=== PATIENT | female | born 1970 | race Caucasian/White ===

== ENCOUNTER 2021-07-31 07:57 | Outpatient (REF) | payer OTHER, SELFPAY ==
[2021-07-31 12:24] LABS: Alanine Aminotransferase 22 U/L (0-31); Aspartate Amino Transferase 24 U/L (5-31); Gamma Glutamyl Transpeptidase 56 U/L (7-33)
== END 2021-07-31 07:58 | disposition home or self-care (01) ==
LOC: HO.HMGCLDS 07:57
PROVIDERS: Visit Provider Registered Nurse
DX: F11.20 Opioid dependence, uncomplicated (principal)
CPT/HCPCS: 36415; 82977; 84450; 84460

== ENCOUNTER 2022-05-10 10:35 | Outpatient (REF) | payer OTHER, SELFPAY ==
[2022-05-10 14:03] LABS: Alanine Aminotransferase 20 U/L (0-31); Aspartate Amino Transferase 17 U/L (5-31); Gamma Glutamyl Transpeptidase 114 U/L (7-33)
== END 2022-05-10 10:36 | disposition home or self-care (01) ==
LOC: HO.HMGCLDS 10:35
PROVIDERS: Visit Provider Registered Nurse
DX: F11.20 Opioid dependence, uncomplicated (principal)
CPT/HCPCS: 36415; 82977; 84450; 84460

== ENCOUNTER 2022-12-16 11:32 | Outpatient (REF) | payer OTHER, SELFPAY ==
[2022-12-16 14:07] LABS: MANUAL DIFF FLAG NO
[2022-12-16 14:20] LABS: Basophils Percent Auto 0.6 % (0-2); Eosinophils Absolute Auto 0.1 X10*3/uL (0.0-0.4); Eosinophils Percent Auto 1.9 % (0-4); Hematocrit 38.3 % (37.0-47.0); Hemoglobin 12.3 g/dl (12.0-16.0); Imm Gran Abs Auto 0.02 X10*3/uL (0.00-0.03); Imm Gran Pct Auto 0.3 % (0.0-0.4); Lymphocytes Absolute Auto 2.2 X10*3/uL (1.2-4.9); Lymphocytes Percent Auto 29.8 % (20-40); Mean Corpuscular HGB Conc 32.1 g/dl (31.0-35.0); Mean Corpuscular Hemoglobin 29.1 pg (27.0-33.0); Mean Corpuscular Volume 90.8 fL (80.0-98.0); Mean Platelet Volume 9.9 fL (9.4-12.3); Monocytes Absolute Auto 0.4 X10*3/uL (0.1-1.2); Monocytes Percent Auto 5.9 % (2-11); Neutrophils Absolute Auto 4.5 x10*3/uL (2.0-8.3); Neutrophils Percent Auto 61.5 % (45-73); Platelet Count 358 X10*3/uL (160-400); Red Blood Count 4.22 X10*6/uL (4.20-5.50); Red Cell Distribution Width 12.8 % (11.0-16.0); White Blood Count 7.2 X10*3/uL (4.8-10.8)
[2022-12-16 14:32] LABS: Alanine Aminotransferase 16 U/L (0-31); Albumin Level 3.9 g/dL (3.5-5.0); Alkaline Phosphatase 71 U/L (39-117); Anion Gap 12 (12-20); Aspartate Amino Transferase 17 U/L (5-31); Bilirubin Total 0.5 mg/dL (0.0-1.0); Blood Urea Nitrogen 16 mg/dL (9-16); Calcium 9.6 mg/dL (8.4-10.2); Carbon Dioxide 27 mmol/L (22-29); Chloride 106 mmol/L (96-108); Estimated Glomerular Filt Rate > 60; Gamma Glutamyl Transpeptidase 35 U/L (7-33); Glucose Random 100 mg/dL (60-115); Potassium 4.7 mmol/L (3.3-5.1); Sodium 140 mmol/L (135-145); Total Protein 6.6 g/dL (6.5-8.0)
[2022-12-17 19:23] LABS: HCV RNA PCR Qn <1.18 NOT DETECTED Log IU/mL (NOT DETECTED); HCV RNA PCR Qn <15 NOT DETECTED IU/mL (NOT DETECTED)
[2022-12-18 07:41] LABS: Hepatitis A Antibody IgG Nonreactive (Nonreactive); ~Hepatitis A Antibody IgG 0.83 S/CO (0.00-0.99)
[2022-12-18 07:53] LABS: HBc Num1 0.13 S/CO (0.00-0.79); HBsAGNum1 0.29 S/CO (0.00-0.99); HIV AB/AG Nonreactive (Nonreactive); Hepatitis B Core Antibody Nonreactive (Nonreactive); Hepatitis B Surface Antigen Negative (Negative); ~HepC Num1 0.12 S/CO (0.00-0.79); ~Hepatitis C Antibody Nonreactive (Nonreactive)
== END 2022-12-16 11:33 | disposition home or self-care (01) ==
LOC: HO.HMGCLDS 11:32
PROVIDERS: Visit Provider Registered Nurse
DX: F11.20 Opioid dependence, uncomplicated (principal)
CPT/HCPCS: 36415; 80053; 82977; 85025; 86704; 86708; 86803; 87340; 87389; 87902

== ENCOUNTER 2023-04-02 08:36 | Emergency (ER) | payer OTHER, SELFPAY ==
--- NOTE | ~2023-04-02 | XR_ITS ---
EXAMINATION: XR ABDOMEN KUB CLINICAL INDICATION: Abdominal pain and constipation COMPARISON: None available. TECHNIQUE: AP view of the abdomen. FINDINGS: The bowel gas pattern is normal with no evidence of ileus or obstruction. Minimal stool is present: No unusual soft tissue calcifications are noted. Surgical clips are seen in the gallbladder fossa The bones are unremarkable. XR/XR KUB IMPRESSION: Unremarkable examination.
[2023-04-02 08:52] VITALS: BP 121/62; BP 150/98; PULSE 53; PULSE 58; RESP 20; TEMP 36.6; O2SAT 100; O2SAT 99; BMI 33.1
--- NOTE | 2023-04-02 08:58 | ED_ITS ---
HPI - Abdominal Pain General Chief Complaint: Abdominal Pain Stated Complaint: abd pain with constipation per ems Time Seen by Provider: 04/02/23 08:51 Source: patient and EMS Mode of arrival: EMS Limitations: no limitations History of Present Illness HPI narrative: 52 yo female with history of chronic constipation who presents to the ER for evaluation of acute on chronic constipation associated with intermittent abdominal pains that are now resolved. States prior to today her last bowel movement was 1 week ago. She states she took 10 tablets of an [id number]-[id number] [employer] laxative within the last 24 hours. She this morning she developed acute onset of intense abdominal cramping along with sweating and 1 episode of vomiting. She states she panicked and called 911. She states she has had 3 episodes of loose bowel movements since then. Her pain is now resolved. MD elicited complaint: abdominal pain Pertinent past history: constipation Onset (ago): week(s) (1) Pain Consistency: now resolved Location: diffuse Severity: severe Quality: cramping Radiation: none Migration to: no migration Exacerbating factors: medication Relieving factors: bowel movement Context: history of similar episodes Associated symptoms: nausea, vomiting, diarrhea and constipation Treatments prior to arrival: other (laxatives) Related Data Allergies Allergy/AdvReac Type Severity Reaction Status Date / Time No Known Allergies Allergy Unverified 07/27/20 15:24 Review of Systems Review of Systems Yes all other systems are reviewed and are negative [facility] Social History Social History Smoked in Last 30 Days: No Use of substances other than those prescribed or required for medical reasons: No Advance Directives: No Patient : No Physical Exam ED Vital Signs: Vital Signs - 24 hr 04/02/23 08:52 Temperature 97.8 F Pulse Rate 53 Respiratory Rate 20 Blood Pressure 121/62 Pulse Oximetry 99 Oxygen Delivery Method Room Air BMI result Body Mass Index 33.1 Appearance: Alert. Oriented X3. No acute distress. Head: normocephalic, atraumatic. Eyes: Pupils equal, round and reactive to light. ENT: Pharynx normal. No tonsillar swelling or exudate. Neck: Normal inspection. Neck supple. CVS: Normal heart rate and rhythm. Pulses normal. Respiratory: No respiratory distress. Breath sounds normal. Abdomen: Soft and nontender. +BS x4 Skin: Skin warm and dry. Normal skin color. Normal skin turgor. No rashes. Extremities: No lower extremity edema. No joint swelling. Neuro/psych: Oriented X 3. No motor deficit. No sensory deficit. CN II-XII in tact. Normal speech and cognition. Medical Decision Making Medical Decision Making [facility] Narrative: 52 yo female with history of chronic constipation presents to the ER for evaluation of severe, transient abdominal cramping her cirrhosis with oral laxative yesterday. She states she had severe cramping pain, nausea, vomiting and then 3 episodes of loose stools earlier today. The pain is now resolved. She is no longer nauseous. On arrival to the ER her abdomen is soft, nontender, nondistended with normoactive bowel sounds. Her KUB is normal. Her labs look normal. At this time patient is stable for discharge home with modification of oral laxative regimen, increase in dietary fiber and follow-up with GI. She has never seen GI, never had a colonoscopy. Patient also follow-up with her primary care doctor. Return precautions were discussed. Stable for DC Differential Diagnosis Differential Diagnoses: The differential diagnosis associated with the presentation includes constipation, bowel obstruction, colitis, diverticulitis Lab Data [facility] Lab Attestation statement: I reviewed the patient's lab results. 04/02/23 09:46 04/02/23 09:46 Labs: Lab Results 04/02/23 04/02/23 Range/Units 09:46 09:46 WBC 10.2 (4.8-10.8) X10*3/uL RBC 4.63 (4.20-5.50) X10*6/uL Hgb 13.3 (12.0-16.0) g/dl Hct 40.4 (37.0-47.0) % MCV 87.3 (80.0-98.0) fL MCH 28.7 (27.0-33.0) pg MCHC 32.9 (31.0-35.0) g/dl RDW 13.2 (11.0-16.0) % Plt Count 306 (160-400) X10*3/uL MPV 8.9 L (9.4-12.3) fL Immature Gran % (Auto) 0.9 H (0.0-0.4) % Neut % (Auto) 70.9 (45-73) % Lymph % (Auto) 19.7 L (20-40) % [place] % (Auto) 6.3 (2-11) % Eos % (Auto) 1.8 (0-4) % Baso % (Auto) 0.4 (0-2) % Lymph # (Auto) 2.0 (1.2-4.9) X10*3/uL [place] # (Auto) 0.6 (0.1-1.2) X10*3/uL Eos # (Auto) 0.2 (0.0-0.4) X10*3/uL Baso # (Auto) 0.0 (0.0-0.2) X10*3/uL Abs Immat Gran (auto) 0.09 H (0.00-0.03) X10*3/uL Absolute Neuts (auto) 7.3 (2.0-8.3) x10*3/uL Absolute Nucleated RBC 0.000 (0.0-0.012) X10*3/uL Nucleated RBC % (auto) 0.0 (0.0-0.2) /100WBC Sodium 141 (135-145) mmol/L Potassium 3.9 (3.3-5.1) mmol/L Chloride 105 (96-108) mmol/L Carbon Dioxide 29 (22-29) mmol/L Anion Gap 11 L (12-20) BUN 11 (9-16) mg/dL Creatinine 0.72 (0.5-1.4) mg/dL Estim Creat Clear Calc 89.7 Estimated GFR > 60 Random Glucose 114 (60-115) mg/dL Calcium 9.3 (8.4-10.2) mg/dL Magnesium 1.8 (1.6-2.6) mg/dL Total Bilirubin 0.6 (0.0-1.0) mg/dL Direct Bilirubin 0.2 (0.0-0.5) mg/dL AST 19 (5-31) U/L ALT 21 (0-31) U/L Alkaline Phosphatase 80 (39-117) U/L Total Protein 6.9 (6.5-8.0) g/dL Albumin 4.0 (3.5-5.0) g/dL Independent Interpretation I performed an independent interpretation of an: Plain X-Ray Interpretation: nonobstructive bowel pattern, agree with radiology read Radiology Impression Discussion of test interpretation with radiology: I have reviewed the radiologist's reading. Radiologist Impression: EXAMINATION: XR ABDOMEN KUB CLINICAL INDICATION: Abdominal pain and constipation? COMPARISON: None available.? TECHNIQUE: AP view of the abdomen. FINDINGS: The bowel gas pattern is normal with no evidence of ileus or obstruction. Minimal stool is present: No unusual soft tissue calcifications are noted. Surgical clips are seen in the gallbladder fossa The bones are unremarkable. XR/XR KUB IMPRESSION: Unremarkable examination. Independent Historian Clinical information obtained from an independent historian. History obtained from or confirmed by: EMS External Record Review External record reviewed: Prior outpatient labs Prescription Management I considered prescription management with: Other (laxatives) Chronic Conditions Patient?s care impacted by: Other (constipation) Critical Care Time Critical Care Time Critical Care Time: No Discharge Plan Discharge Clinical Impression: Constipation Patient Disposition: Home, Self-Care Instructions: Constipation (DC), High Fiber Diet (ED) Additional Instructions: Your abdominal x-ray was normal. Your lab workup was unremarkable. Recommend MiraLax 17 g daily. This is a powder that can be added to any drink, it is tasteless and will gently soften her stool and have a laxative affect. You can use it daily. Also recommend colace 100 mg two times per day. Recommend following up with your primary care doctor Also recommend you follow up with GI, you are due for a colonoscopy If you develop new or worsening symptoms call 911 or come back to the ER for further evaluation. Referrals: [facility] [Provider Group] (constipation)
[2023-04-02 09:50] LABS: MANUAL DIFF FLAG NO
[2023-04-02 09:54] LABS: Basophils Percent Auto 0.4 % (0-2); Eosinophils Absolute Auto 0.2 X10*3/uL (0.0-0.4); Eosinophils Percent Auto 1.8 % (0-4); Hematocrit 40.4 % (37.0-47.0); Hemoglobin 13.3 g/dl (12.0-16.0); Imm Gran Abs Auto 0.09 X10*3/uL (0.00-0.03); Imm Gran Pct Auto 0.9 % (0.0-0.4); Lymphocytes Percent Auto 19.7 % (20-40); Mean Corpuscular HGB Conc 32.9 g/dl (31.0-35.0); Mean Corpuscular Hemoglobin 28.7 pg (27.0-33.0); Mean Corpuscular Volume 87.3 fL (80.0-98.0); Mean Platelet Volume 8.9 fL (9.4-12.3); Monocytes Absolute Auto 0.6 X10*3/uL (0.1-1.2); Monocytes Percent Auto 6.3 % (2-11); Neutrophils Absolute Auto 7.3 x10*3/uL (2.0-8.3); Neutrophils Percent Auto 70.9 % (45-73); Platelet Count 306 X10*3/uL (160-400); Red Blood Count 4.63 X10*6/uL (4.20-5.50); Red Cell Distribution Width 13.2 % (11.0-16.0); White Blood Count 10.2 X10*3/uL (4.8-10.8)
[2023-04-02 10:09] LABS: Alanine Aminotransferase 21 U/L (0-31); Alkaline Phosphatase 80 U/L (39-117); Anion Gap 11 (12-20); Aspartate Amino Transferase 19 U/L (5-31); Bilirubin Direct 0.2 mg/dL (0.0-0.5); Bilirubin Total 0.6 mg/dL (0.0-1.0); Blood Urea Nitrogen 11 mg/dL (9-16); Calcium 9.3 mg/dL (8.4-10.2); Carbon Dioxide 29 mmol/L (22-29); Chloride 105 mmol/L (96-108); Creatinine Clr Calc Pharmacy 89.7; Estimated Glomerular Filt Rate > 60; Glucose Random 114 mg/dL (60-115); Magnesium 1.8 mg/dL (1.6-2.6); Potassium 3.9 mmol/L (3.3-5.1); Sodium 141 mmol/L (135-145); Total Protein 6.9 g/dL (6.5-8.0)
[2023-04-02 10:19] VITALS: BP 122/69; PULSE 59; RESP 18; TEMP 36.6; O2SAT 99
== END 2023-04-02 10:29 | disposition home or self-care (01) ==
PROVIDERS: Physician Assistant; Emergency Provider Emergency Medicine Emergency Medical Services
DX: K59.00 Constipation, unspecified (principal); R10.9 Unspecified abdominal pain
CPT/HCPCS: 36415; 74018; 80048; 80076; 83735; 85025; 99283; 99284

== ENCOUNTER 2025-06-08 08:55 | Outpatient (AMB) | payer OTHER, SELFPAY ==
--- OUTSIDE RECORDS SUMMARY | 2025-06-08 09:20 | XMS_ITS ---
Author Name [facility] Organization Unknown Care Team Organization Name Specialty Phone Email Start Date End Da te [facility] Valery Castro Primary Care 01/15/2023 06/28/2024 [facility] Ariana Curry Primary Care 09/17/20222023
--- OUTSIDE RECORDS SUMMARY | 2025-06-08 09:20 | XMS_ITS | Clinical Summary ---
Author Organization [facility] [address] [place] [address] Address [address], [place] Phone Care Team Providers Care Chemical Compounder Helper Name Role Phone Valery Tejeda MD Primary Care Prov ider Allergies No known active allergies Medications ALPRAZolam (XANAX) 1 mg tablet Take 1 mg by mouth 2 times daily as needed. Active cloNIDine (CATAPRES) 0.1 mg tablet Take 0.1 mg by mouth 2 times daily. Active blood sugar diagnostic (FreeStyle Lite Strips) test strip E11.49USE ONCE DAILY 4 Active freestyle 28 gauge lancets 1 Units by Does not apply route daily. 4 Active blood-glucose meter kit Use to check blood sugars 1 each 5 Active empagliflozin (Jardiance) 25 mg tablet Take 25 mg by mouth daily. 90 tablet 2 5 Active metFORMIN XR (GLUCOPHAGE-XR) 500 mg 24 hr tabletIndication s:Type 2 diabetes mellitus with other diabetic kidney complication (CMS/HCC V24, CMS/HCC V28) Take 1 tablet (500 mg total) by mouth 2 (two) times a day with meals. 180 tablet 1 5 Active levothyroxine (SYNTHROID, LEVOTHROID) 125 mcg tabletIndication s:Hypothyroidism , unspecified Take 1 tablet (125 mcg total) by mouth 1 (one) time each day. 90 tablet 1 5 Active polyethylene glycol (Golytely) 236-22.74-6.74 -5.86 gram solution Take 4L by mouth once for one dose. May substitue any PEG. Starting at 6PM the night before your procedure drink 1 8oz glasses at your own pace until you complete half of the gallon. Finish 2nd half of the gallon 5 hours before your procedure. 4000 mL 5 Active bisacodyL (DULCOLAX) 5 mg EC tablet Take 2 tablets by mouth right before beginning bowel prep. See instructions provided by the office 2 tablet 5 Active Active Problems Problem Noted Date Diagnosed Date Microalbuminuria 06/27/2022 DM (diabetes mellitus), type 2 with renal complications ([facility] V24, [facility] V28) 08/24/2021 Hypothyroidism 12/23/2019 Overview (08/12/2024): Levothyroxine, positive thyroid antibodies, likely Kevin's. Depression 12/23/2019 Overview (08/12/2024): Psychiatrist-giving medication. Seeing once a month. Anxiety 12/23/2019 Encounters Date Type Department Care Team Description 03/16/2025 1:15 PM EDT Office Visit Adult Medicine [address] [phone] Gina Bello PA Dysuria (Primary Dx); Vasomotor symptoms due to menopause; Type 2 diabetes mellitus with diabetic microalbuminuria, without long-term current use of insulin ([facility] V24, [facility] V28); Microalbuminuria; Hypothyroidism, unspecified type; Screening for depression; Encounter for screening involving social determinants of health (SDoH); Screening for malignant neoplasm of colon; Encounter for screening mammogram for malignant neoplasm of breast; Screen for STD (sexually transmitted disease) from Last 3 Months Immunizations Name Administration Dates Next Due Influenza Quadravalent, MDCK , 0.5ml, preservative free (Flucelvax) 6mo and older 09/02/2017 Influenza trivalent, with pr eservative (Fluzone; Afluria) 6mo and older 08/27/2016 Surgical History Surgery Date Site/Laterality Comments OTHER SURGICAL HISTORY PROCEDURE: DENIES PREVIOUS SURGERY Medical History Medical History Date Comments Obesity DX:Obesity DM (diabetes mellitus), type 2 with renal complications ([facility] V24, [facility] V28) 08/24/2021 DX:DM (diabetes mellitus), t ype 2 with renal complications ([facility]) Microalbuminuria 06/27/2022 DX:Microalbumin uria Social History Tobacco Use Types Packs/Day Years Used Date Smoking Tobacco: Some Days Smokeless Tobacco: Never Tobacco Cessation:Ready to Q uit: Not Asked; Counseling Given: Not Answered Housing Instability Answer Date Recorde d Are you worried that in the next 2 months you may not have stable housing? No 03/16/2025 Food Access & Nutrition Answer Date Rec orded Do you have access to a vari ety of food including fruits and vegetables? Yes 03/16/2025 Health Literacy Answer Date Recorded How often do you need to hav e someone help you when you read instructions, pamphlets, or other written material from your doctor or pharmacy? Never 03/16/2025 Caregiver: How often do you need to have someone help you when you read instructions, pamphlets, or other written material from your doctor or pharmacy? Not on file 03/16/2025 Financial Risk Answer Date Recorded How hard is it for you to pa y for the very basics like food, housing, medical care, and air conditioning / heating? Not very hard 03/16/2025 Transportation Answer Date Recorded Has the lack of transportati on kept you from meetings, work, or from getting things needed for daily living? No Has the lack of transportati on kept you from medical appointments or from getting medications? No 03/16/2025 Social Isolation Answer Date Recorded How often do you feel lonely or isolated from th ose around you? Never 03/16/2025 Food Risk Answer Date Recorded Within the past 12 months we worried whether our food would run out before we got money to buy more. Never true 03/16/2025 Within the past 12 months th e food we bought just didn't last and we didn't have money to get more. Never true 03/16/2025 Dependent Care Answer Date Recorded Do you need help finding or paying for care for your loved ones. For example, early childhood special educator or elderly care for an older adult? No 03/16/2025 Education Answer Date Recorded Do you think completing more education or training, like finishing a GED, going to college, or learning a trade, would be helpful for you? N/A 03/16/2025 Employment and Income Answer Date Recor ded During the last four weeks, have you been actively looking for work? No 03/16/2025 Living Situation Answer Date Recorded What is your living situation? 0 03/16/2025 Comments No Sex and Gender Information Value Date Recorded Sex Assigned at Female 01/29/2025 7:29 PM EDT Legal Sex Female 9:48 PM EST Gender Identity Female 05/18/2025 9:24 AM EDT Sexual Orientation Straight 01/29/2025 7: 29 PM EDT Obstetrics History Last Filed Vital Signs Vital Sign Reading Time Taken Comments Blood Pressure 97/63 03/16/2025 1:16 PM EDT Pulse 66 03/16/2025 1:16 PM EDT Temperature 36.2 C (97.2 F) 03/16/2025 1:16 PM EDT Respiratory Rate 14 03/16/2025 1:16 PM EDT Oxygen Saturation 98% 03/16/2025 1:16 PM EDT Inhaled Oxygen Concentration - - Weight 60 kg (132 lb 3.2 oz) 03/16/2025 1:16 PM EDT Height 157.5 cm (5' 2 ) 03/16/2025 1:16 PM EDT Body Mass Index 24.18 03/16/2025 1:16 PM EDT Plan of Treatment Upcoming Encounters Date Type Department Care Team (Late st Contact Info) Description 09/06/2025 4:40 PM EDT Office Visit [address] [phone] Paulina Rush PA [address], [place] 11/01/2025 4:40 PM EST Office Visit [address] [phone] Paulina Rush PA [address], [place] Health Maintenance Due Date Last Done Comments Breast Cancer Screening 1969 Diabetes: Annual Retina Eye Exam 1979 DTaP,Tdap,and Td Vaccines (1 - Tdap) 1988 Hepatitis B Vaccines (1 of 3 - 19+ 3-dose series) 1988 Pneumococcal Vaccine: 50+ Years (1 of 2 - PCV) 1988 Cervical Cancer Screening: Pap Smear 1990 Zoster Vaccines (1 of 2) 2019 Colorectal Cancer Screening: Colonoscopy 10/19/2022 Influenza Vaccine (#1) 2025 7, 08/27/2016 Diabetes: Blood Sugar Contro l Test (HGBA1C) 09/16/2025 03/16/2025, 03/12/2024, 03/12/2024 Diabetes: Annual Urine Albumin-Creatinine Ratio (uACR) 03/16/2026 03/16/2025, 06/26/2022 Diabetes: Annual Foot Exam 03/16/2026 03/16/2025 Diabetes: Annual GFR (Glomerular Filtration Rate) 03/16/2026 03/16/2025, 03/12/2024, 03/12/2024 Social Influencers of Health Screening 03/16/2026 03/16/2025 Cholesterol Screening (Lipid Panel) 03/16/2030 03/16/2025, 04/01/2023 COVID-19 Vaccine Discontinued 09/11/2021, 08/21/2021 Depression Screening Completed 03/16/2025 HIV Screening Completed 03/16/2025 Hepatitis C Screening Completed 03/16/2025 HIB Vaccines Aged Out No longer eligi ble based on patient's age to complete this topic HPV Vaccines Aged Out No longer eligi ble based on patient's age to complete this topic Hepatitis A Vaccines Aged Out No long er eligible based on patient's age to complete this topic IPV Vaccines Aged Out No longer eligi ble based on patient's age to complete this topic MMR Vaccines Aged Out No longer eligi ble based on patient's age to complete this topic Meningococcal ACWY Vaccine Aged Out N o longer eligible based on patient's age to complete this topic Meningococcal B Vaccine Aged Out No l onger eligible based on patient's age to complete this topic RSV Immunization Patients Under 20 months Aged Out No longer eligible based on patient's age to complete this topic Varicella Vaccines Aged Out No longer eligible based on patient's age to complete this topic Procedures Procedure Name Priority Date/Time Associated Diagnosis Comments THYROID STIMULATING HORMONE Routine 03/16/2025 2:06 PM EDT Type 2 diabetes mellitus with other diabetic kidney complication, without long-term current use of insulin ([facility] V24, [facility] V28) Hypothyroidism, unspecified type HEMOGLOBIN A1C Routine 03/16/2025 2:06 PM EDT Type 2 diabetes mellitus with other diabetic kidney complication, without long-term current use of insulin ([facility] V24, [facility] V28) COMPREHENSIVE METABOLIC PANEL Routine 03/16/2025 2:06 PM EDT Type 2 diabetes mellitus with other diabetic kidney complication, without long-term current use of insulin ([facility] V24, [facility] V28) LIPID PANEL WITH REFLEX TO DIRECT LDL Routine 03/16/2025 2:06 PM EDT Type 2 diabetes mellitus with other diabetic kidney complication, without long-term current use of insulin ([facility] V24, [facility] V28) MICROALBUMIN CREATININE URINE RATIO Routine 03/16/2025 2:06 PM EDT Type 2 diabetes mellitus with other diabetic kidney complication, without long-term current use of insulin ([facility] V24, [facility] V28) HIV 1, 2 ANTIBODY, P24 ANTIGEN WITH REFLEX TO DIFFERENTIATION Routine 03/16/2025 2:06 PM EDT Screen for STD (sexually transmitted disease) HEPATITIS C ANTIBODY Routine 03/16/2025 2:06 PM EDT Screen for STD (sexually transmitted disease) CULTURE URINE Routine 03/16/2025 2:06 PM EDT Dysuria from Last 3 Months Results * Hepatitis C antibody (03/16/2025 2:06 PM EDT) Hepatitis C Antibody Negative Negative LAB CHEMISTRY METHOD 03/16/2025 7:40 PM EDT [facility] Blood Venous blood specimen / Unknown Venipuncture / Unknown 03/16/2025 2:06 PM EDT 03/16/2025 2:06 PM EDT Gina CRAIN LAB BLOOD ORDERABLES Final Resu lt Performing Organization Address [facility]/ZIP Co de Phone Number [facility] [address] [place] [address], [place] [phone] * HIV 1,2 antibody, p24 antigen with reflex to differentiation (03/16/2025 2:06 PM EDT) Pathologist [facility] HIV Combo AB/AG Negative Negative LAB CHEMISTRY METHOD 03/16/2025 7:41 PM EDT [facility] Blood Venous blood specimen / Unknown Venipuncture / Unknown 03/16/2025 2:06 PM EDT 03/16/2025 2:06 PM EDT Narrative [facility] - 03/16/2025 7:41 PM EDT This assay is a 4th generation assay allowing for earlier detection of HIV infection by detecting the presence of the HIV-1 p24 antigen as well as the traditional antibodies to HIV type 1 (including group O) and type 2. Use of a 4th generation assay is the current CDC recommendation for HIV screening. Gina CRAIN LAB BLOOD ORDERABLES Final Resu lt Performing Organization Address [facility] Co de Phone Number [facility] [address] [place] [address], [place] [phone] * (ABNORMAL) Lipid panel with reflex to direct LDL (03/16/2025 2:06 PM EDT) Pathologist [facility] Cholesterol 145 0 - 200 mg/dL LAB CHEMISTRY METHOD 03/16/2025 6:15 PM EDT [facility] Triglycerides 176(H) 0 - 150 mg/dL LAB CHEMISTRY METHOD 03/16/2025 6:15 PM EDT [facility] HDL 48 >=40 mg/dL LAB CHEMISTRY METHOD 03/16/2025 6:15 PM EDT [facility] LDL Calculated 62 0 - 100 mg/dL LAB CHEMISTRY METHOD 03/16/2025 6:15 PM EDT [facility] VLDL Cholesterol Garry 35.2 mg/dL LAB CHEMISTRY METHOD 03/16/2025 6:15 PM EDT [facility] Non HDL Chol. (LDL+VLDL) 97 <145 mg/dL LAB CHEMISTRY METHOD 03/16/2025 6:15 PM EDT [facility] Chol/HDL Ratio 3.0 0.0 - 4.4 LAB CHEMISTRY METHOD 03/16/2025 6:15 PM EDT [facility] Blood Venous blood specimen / Unknown Venipuncture / Unknown 03/16/2025 2:06 PM EDT 03/16/2025 2:06 PM EDT us Paulina CRAIN LAB BLOOD ORDERABLES Final Resul t [facility] [address] [place] [address], [place] [phone] * Microalbumin creatinine urine ratio (03/16/2025 2:06 PM EDT) Creatinine, Urine 126.0 mg/dL LAB CHEMISTRY METHOD 03/16/2025 6:50 PM EDT [facility] Microalb, Ur 9.6 0.0 - 29.0 mg/L LAB CHEMISTRY METHOD 03/16/2025 6:50 PM EDT [facility] Microalb/Creat Ratio 8 <30 mg/g creat LAB CHEMISTRY METHOD 03/16/2025 6:50 PM EDT [facility] Urine Urine specimen obtained by clean catch procedure / Unknown Non-blood Collection / Unknown 03/16/2025 2:06 PM EDT 03/16/2025 2:06 PM EDT us Paulina CRAIN LAB URINE ORDERABLES Final Resul t Performing Organization Address [facility]/ZIP Co de Phone Number [facility] [address] [place] [address], [place] [phone] * Culture urine (03/16/2025 2:06 PM EDT) Pathologist [facility] Culture, Urine 10,000-49,000 CFU/mL Mixed urogenital morales, no uropathogens present. Suggest repeat specimen if clinically indicated. 03/17/2025 10:45 AM EDT [facility] Urine Urine specimen obtained by clean catch procedure / Unknown Non-blood Collection / Unknown 03/16/2025 2:06 PM EDT 03/16/2025 2:06 PM EDT Gina CRAIN LAB MICROBIOLOGY - GENERAL ORDE RABLES Final Result Performing Organization Address [facility] Co de Phone Number [facility] [address] [place] [address], [place] [phone] * Thyroid stimulating hormone (03/16/2025 2:06 PM EDT) Pathologist [facility] TSH 0.46 0.40 - 4.00 mcIU/mL LAB CHEMISTRY METHOD 03/16/2025 8:27 PM EDT [facility] Blood Venous blood specimen / Unknown Venipuncture / Unknown 03/16/2025 2:06 PM EDT 03/16/2025 2:06 PM EDT Paulina CRAIN LAB BLOOD ORDERABLES Final Resul t Performing Organization Address [facility]/ZIP Co de Phone Number [facility] [address] [place] [address], [place] [phone] * Hemoglobin A1c (03/16/2025 2:06 PM EDT) [facility] Hemoglobin A1C 5.0 <6.5 % LAB CHEMISTRY METHOD 03/16/2025 9:35 PM EDT [facility] Mean Bld Glu Estim. 97 mg/dL LAB CHEMISTRY METHOD 03/16/2025 9:35 PM T [facility] Blood Venous blood specimen / Unknown Venipuncture / Unknown 03/16/2025 2:06 PM EDT 03/16/2025 2:06 PM EDT us Paulina CRAIN LAB BLOOD ORDERABLES Final Resul t [facility] [address] [place] [address], [place] [phone] * (ABNORMAL) Comprehensive metabolic panel (03/16/2025 2:06 PM EDT) [facility] Sodium 142 133 - 145 mmol/L LAB CHEMISTRY METHOD 03/16/2025 6:15 PM [facility] Potassium 3.9 3.5 - 5.5 mmol/L LAB CHEMISTRY METHOD 03/16/2025 6:15 PM [facility] Chloride 107 96 - 110 mmol/L LAB CHEMISTRY METHOD 03/16/2025 6:15 PM [facility] CO2 28 21 - 32 mmol/L LAB CHEMISTRY METHOD 03/16/2025 6:15 PM [facility] Anion Gap 7 3 - 11 LAB CHEMISTRY METHOD 03/16/2025 6:15 PM [facility] Glucose 68(L) 70 - 100 mg/dL LAB CHEMISTRY METHOD 03/16/2025 6:15 PM [facility] BUN 15 5 - 25 mg/dL LAB CHEMISTRY METHOD 03/16/2025 6:15 PM [facility] Creatinine 0.64 0.50 - 1.10 mg/dL LAB CHEMISTRY METHOD 03/16/2025 6:15 PM T [facility] eGFR 105 >=60 mL/min/1. 73m2 LAB CHEMISTRY METHOD 03/16/2025 6:15 PM [facility] Comment:Calculation based on the Chronic Kidney Disease Epidemiology Collaboration (CKD-EPI) equation refit without adjustment for race. BUN/Creatinine Ratio 23.4 LAB CHEMISTRY METHOD 03/16/2025 6:15 PM T [facility] Calcium 9.2 8.5 - 10.5 mg/dL LAB CHEMISTRY METHOD 03/16/2025 6:15 PM [facility] AST (SGOT) 18 10 - 42 unit/L LAB CHEMISTRY METHOD 03/16/2025 6:15 PM [facility] ALT (SGPT) 21 10 - 60 unit/L LAB CHEMISTRY METHOD 03/16/2025 6:15 PM [facility] Alkaline Phosphatase 75 42 - 121 unit/L LAB CHEMISTRY METHOD 03/16/2025 6:15 PM [facility] Total Protein 7.0 6.0 - 8.0 g/dL LAB CHEMISTRY METHOD 03/16/2025 6:15 PM [facility] Albumin 3.7 3.2 - 5.0 g/dL LAB CHEMISTRY METHOD 03/16/2025 6:15 PM [facility] Total Bilirubin 0.3 0.0 - 1.4 mg/dL LAB CHEMISTRY METHOD 03/16/2025 6:15 PM [facility] Blood Venous blood specimen / Unknown Venipuncture / Unknown 03/16/2025 2:06 PM EDT 03/16/2025 2:06 PM EDT us Paulina CRAIN LAB BLOOD ORDERABLES Final Resul t [facility] [address] [place] [address], from Last 3 Months Insurance [facility] [employer] - [employer] Care Teams Chemical Compounder Helper Relationship Specialty Start Date End Date Valery Tejeda MD [address] [place] [id number] PCP - General Internal Medicine 06/10/22
--- NOTE | 2025-06-08 09:41 | A.OFFVIS_ITS ---
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 Annual/do not ye Intake Note: here for annual complaining of hormonal issues, night sweats, hot flashes and irritability Magneto Specialist Required: No Information Interpreted: non-clinical & clinical Solar Fabrication Technician: Solar Fabrication Technician Present (zoie) Accompanied by: Self / Same As Patient Allergies No Known Allergies Allergy (Unverified 06/08/25 09:42) Medication List - Last Reconciled 06/08/25 by Yin Eric LPN alprazolam (Xanax) 1 mg PO BID levothyroxine 125 mcg PO DAILY metformin 500 mg PO BID Is last menstrual period known: No Post menopausal: No Patient : No Do you need a note to return to daycare/school/sports/work: No HPI Comments Details: Patient is a 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 LMP 2+years ago. Currently not sexually active, tested in the past. Denies any vaginal dryness or irritation. STI testing offered; she declines. Attempting to eat a healthy diet with calcium and vitamin D and stays active with exercise. Last pap smear; 14+ yrs. ago, negative. Last mammogram; not up to date. Colonoscopy is not UTD, has referral. Denies any family history of breast, ovarian or colon cancer. 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: Yes Do you presently have visiting nurse or other home services: No 75 years or older and lives alone: No Alcohol intake: never Patient Tobacco Use Status: Never used Tobacco service: No Current occupational status: previously employed Current occupational exposures/hazards: No Cognitive needs: No Hearing needs: No Vision needs: No Female Reproductive History Menstrual Age of Menarche: 12 Duration of menses: 3-5 days control method: none Menopause type: natural Total pregnancies: 3 Full term: 1 Premature: 2 Number of Living Children: 3 History of abnormal pap smear: No History of STI: No Other: patient states her last pap smear was 14 years ago and last mammogram was never Review of Systems Const All systems reviewed & are unremarkable except as noted in HPI and below Reports as per HPI Eyes Reports no additional complaints ENT Reports no additional complaints Card Reports no additional complaints Resp Reports no additional complaints GI Reports as per HPI and Reports no additional complaints Reports as per HPI Musc Reports no additional complaints Skin/Breast Reports as per HPI Neuro Reports no additional complaints Psych Reports no additional complaints Endo Reports no additional complaints Hemal/Lymph Reports no additional complaints Aller/Immun Reports no additional complaints Physical Exam Vital Signs: Last Vital Signs BP 102/60 / 09:57 BMI result Body Mass Index 24.0 Const General: cooperative, healthy appearing, no acute distress, well developed and alert Orientation/consciousness: patient oriented x3 HEENT Head: Yes normal to inspection Eyes General: appearance normal, both eyes and all related structures Neck Neck: Yes normal visual inspection Thyroid: Thyroid normal Chest Chest palpation & inspection: normal inspection of the chest and other (no puckering, dimpling, peau de orange, retraction, discharge, masses) Breast/axilla inspection: normal inspection of the breasts Breast/axilla palpation: normal palpation of the breasts Resp Effort & Inspection: normal respiratory effort GI Inspection: Yes normal to inspection Palpation (GI): Soft to palpation Rectal Exam - Female: deferred General: Yes bladder normal to palpation External Female Exam: normal external appearance and normal appearance of the urethra Speculum Exam - Vagina: normal appearance of the vagina, normal palpation, normal vaginal discharge and vagina atrophic Speculum Exam - Cervix: normal appearance of the cervix and normal palpation Bimanual exam- vagina & uterus: normal bimanual exam, normal palpation, uterine size normal, bladder normal to palpation, normal palpation and non-tender Bimanual Exam- Adnexa, other: no masses and Other (Pelvic fullness throughout, history of constipation) Skin General skin exam: no rashes or lesions noted Rashes: no rashes Neuro General: patient oriented x3 Cognition (Neuro): normal cognition Extrem General: Yes normal to inspection Psych Attitude: cooperative Thought process: Normal thought process present Assessment & Plan Assessment & Plan (1) Pelvic fullness: Code(s): R19.00 - Intra-abdominal and pelvic swelling, mass and lump, unspecified site Category: Medical Plan: Discuss physical exam today with multiple areas of fullness most likely due to constipation, I recommend a pelvic ultrasound to evaluate further. Counseled regarding constipation prevention methods including dietary changes, with increased fiber, increasing hydration, physical activity, and [id number] self-help measures. The patient expressed understanding and agreement with the plan of care. All of her questions and concerns were addressed to the best of my ability. Ultrasound ordered follow up in person for recheck. (2) Routine gynecological examination: Code(s): Z01.419 - Encounter for gynecological examination (general) (routine) without abnormal findings Category: Medical Qualifiers: Gynecological examination findings: abnormal findings PRESENT Qualified Code(s): Z01.411 - Encounter for gynecological examination (general) (routine) with abnormal findings Plan: Discussed: Current recommendations for pap smears per ASCCP guidelines. Pap obtained. Await results for final of care Breast awareness, periodic self breast exams and yearly mammogram. Mammogram ordered. Maintain a healthy lifestyle, well balanced diet including Calcium 1,200 mg and Vitamin D 600 IU daily, and routine exercise. Use of condoms for STI prevention if indicated. Contact the office with any postmenopausal bleeding. Patient verbalizes understanding and agrees to the plan of care. She was given opportunity to ask questions and all questions were answered to the best of my ability. 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 (3) Hot flash, menopausal: Code(s): N95.1 - Menopausal and female climacteric states Category: Medical Plan: Total time I personally spent on visit and management today: ?20 minutes. Time spent included review of pertinent office notes in the electronic health record; review of laboratory and imaging results; review of personal family medical history; performing physical exam; discussing diagnosis and plan of care with the patient; documenting the encounter in the EMR. Plan Concerns for symptoms today discussed. Avoidance of triggers: ?Alcohol and spicy foods Nonhormonal therapies for hot flashes. Self-help measures include: ?Cooling fabric mattress pad, pillow, wear layered clothing, remote control fan, hydrate well. Literature-Menopause.org handout-website information. [place] [employer]opausal [employer] (NAMS)website. ?Literature a various sources and authors-incl. sleep podcast. Hot flashes occur up to 80% during menopausal transition, then improve with time can last for of the lifetime. ?Follow up pending review of literature. The patient expressed understanding and agreement with the plan of care. All of her questions and concerns were addressed to the best of my ability. This note is constructed using voice recognition software. While every effort has been made to ensure accuracy, bench examiner errors may have been included. Orders: Orders US pelvic and transvaginal Today R19.00 - Intra-abdominal and pelvic swelling, mass and lump, unspecified site Pap Smear Today Z01.419 - Encounter for gynecological examination (general) (routine) without abnormal findings MM tomosynthesis screening BI Today Z12.31 - Encounter for screening mammogram for malignant neoplasm of breast Coding Level of Care Code New Pt Prev Care 40-64y(87829) Diagnoses Pelvic fullness R19.00 Encounter for gynecological examination with abnormal finding Z01.411 Gynecological examination findings: abnormal findings PRESENT Hot flash, menopausal N95.1
[2025-06-08 09:57] VITALS: BP 102/60; BMI 24.0
== END 2025-06-08 11:47 | disposition home or self-care (01) ==
LOC: HO.HWS 08:56
PROVIDERS: Visit Provider Advanced Practice Midwife
DX: Z01.411 Encounter for gynecological examination (general) (routine) with abnormal findings (principal); R19.00 Intra-abdominal and pelvic swelling, mass and lump, unspecified site; N95.1 Menopausal and female climacteric states
CPT/HCPCS: 99386; 99459

== ENCOUNTER 2025-06-08 08:55 | Outpatient (REF) | payer OTHER, SELFPAY | END 2025-06-08 08:56 | disposition home or self-care (01) | LOC: HO.LNP 08:55 | PROVIDERS: Visit Provider Advanced Practice Midwife | DX: Z01.411 Encounter for gynecological examination (general) (routine) with abnormal findings (principal); Z12.31 Encounter for screening mammogram for malignant neoplasm of breast; N95.1 Menopausal and female climacteric states; R19.00 Intra-abdominal and pelvic swelling, mass and lump, unspecified site; Z79.899 Other long term (current) drug therapy | CPT/HCPCS: 87626; 88175; 99386 ==

== ENCOUNTER 2025-08-31 13:58 | Outpatient (REF) | payer OTHER, SELFPAY ==
--- NOTE | ~2025-08-31 | US_ITS ---
EXAMINATION: US PELVIS, COMPLETE CLINICAL INFORMATION: Intra-abdominal and pelvic swelling. COMPARISON: None available TECHNIQUE: Transabdominal and transvaginal imaging was performed. FINDINGS: Very limited due to bowel gas and bowel loops. LMP: Postmenopausal Uterus is anteverted , measuring 7.2 x 3.3 x 4.9 cm. There are 2 heterogeneous hypoechoic foci in the myometrium, measuring 1.3 x 1 x 1.2 cm and measuring 0.9 x 0.4 x 0.7 cm. These may reflect fibroids. Endometrial thickness 7 mm. Right ovary measures 1.3 x 1 x 1.2 cm. Volume 3.4 mL. Left ovary measures 2.1 x 1.5 x 1.2 cm. Volume 2 mL. No free fluid in the cul-de-sac. 0.9 x 0.7 x 1.1 cm cystic area along the base of the left side of the bladder, could represent ureterocele. US/US pelvic and transvaginal IMPRESSION: Very limited study due to bowel gas and bowel loops. * Postmenopausal patient. Endometrial thickness measuring 7 mm. In postmenopausal patients, endometrial thickness of 8 mm or less is within range of normal, if no vaginal bleeding. Clinical correlation and management is recommended based on patient's symptoms and risk factors. In a postmenopausal patient, endometrial thickness of 4 mm or more in the presence of vaginal bleeding would require further evaluation. Clinical management is recommended. This probably reflects fibroids * 2 heterogeneous hypoechoic foci in the uterine myometrium measuring up to 1.3 cm and 0.9 cm respectively. These may reflect fibroids. Further evaluation with MRI as clinically indicated. * Cystic focus in the left bladder base measuring up to 1.1 cm, could represent a ureterocele. Electronically signed by: Alonso Ren MD 08/31/2025 03:36 PM EDT
--- OUTSIDE RECORDS SUMMARY | 2025-08-31 20:03 | XMS_ITS | Clinical Summary ---
Author Organization [facility] [address] [place] [address] Address [address], [place] Phone Care Team Providers Care Quality Improvement Manager Name Role Phone Valery Tejeda MD Primary [...] (diabetes mellitus), type 2 with renal complications ([facility] V24, [facility] V28) 08/24/2021 Hypothyroidism 12/23/2019 Overview (08/12/2024): Levothyroxine, positive thyroid antibodies, likely Kevin's. Depression 12/23/2019 Overview (08/12/2024): Psychiatrist-giving medication. Seeing once a month. Anxiety 12/23/2019 Immunizations Immunization Administration Dates Next Due Influenza Quadravalent, MDCK , 0.5ml, preservative free (Flucelvax) 6mo and older 09/02/2017 Influenza trivalent, with pr eservative (Fluzone; Afluria) 6mo and older 08/27/2016 Surgical History Surgery Date Site/Laterality Comments OTHER SURGICAL HISTORY PROCEDURE: DENIES PREVIOUS SURGERY Medical History Medical History Date Comments Obesity DX:Obesity DM (diabetes mellitus), type 2 with renal complications ([facility] V24, [facility] V28) 08/24/2021 DX:DM (diabetes mellitus), t ype 2 with renal complications ([facility]) Microalbuminuria 06/27/2022 DX:Microalbumin uria Social History Tobacco [...] care for your loved ones. For example, children's attendant or elderly care for an older adult? [...] Date Recorded What is your living situation? Unrecognized valu e 03/16/2025 Comments No Sex and Gender Information [...] Team (Late st Contact Info) Description 09/06/2025 4:30 PM EDT Office Visit [address] [phone] Paulina Rush PA [address] [place] [address] 11/01/2025 4:40 PM EST Office Visit [address] [phone] Paulina Rush PA [address] [place] [address] Health Maintenance Due Date Last Done Comments Breast Cancer Screening 1969 Colorectal Cancer Screening: Colonoscopy 1969 Diabetes: Annual Retina Eye Exam 1979 DTaP,Tdap,and Td Vaccines (1 - Tdap) 1988 Hepatitis B Vaccines (1 of 3 - 19+ 3-dose series) 1988 Pneumococcal Vaccine: 50+ Years (1 of 2 - PCV) 1988 Cervical Cancer Screening: Pap Smear 1990 RSV Immunization Adult Patients (1 - Risk 50-74 years 1-dose series) 2019 Zoster Vaccines (1 of 2) 2019 Influenza Vaccine (#1) 2025 7, 08/27/2016 Diabetes: [...] Procedure Name Priority Date/Time Associated Diagnosis Comments HEPATITIS C ANTIBODY Routine 03/16/2025 2:06 PM EDT Screen for STD (sexually transmitted disease) HIV 1, 2 ANTIBODY, P24 ANTIGEN WITH REFLEX TO DIFFERENTIATION Routine 03/16/2025 2:06 PM EDT Screen for STD (sexually transmitted disease) MICROALBUMIN CREATININE URINE RATIO Routine 03/16/2025 2:06 PM EDT Type 2 diabetes mellitus with other diabetic kidney complication, without long-term current use of insulin ([facility] V24, [facility] V28) COMPREHENSIVE METABOLIC PANEL Routine 03/16/2025 2:06 PM EDT Type 2 diabetes mellitus with other diabetic kidney complication, without long-term current use of insulin ([facility] V24, [facility] V28) HEMOGLOBIN A1C Routine 03/16/2025 2:06 PM EDT Type 2 diabetes mellitus with other diabetic kidney complication, without long-term current use of insulin ([facility] V24, [facility] V28) LIPID PANEL WITH REFLEX TO DIRECT LDL Routine 03/16/2025 2:06 PM EDT Type 2 diabetes mellitus with other diabetic kidney complication, without long-term current use of insulin ([facility] V24, [facility] V28) from Last 3 Months or Most Recently Relevant to Health Maintenance Results * Hepatitis C antibody (03/16/2025 2:06 PM EDT) Hepatitis C Antibody Negative Negative LAB CHEMISTRY METHOD 03/16/2025 7:40 PM EDT [facility] Blood Venous blood specimen / Unknown Venipuncture / Unknown 03/16/2025 2:06 PM EDT 03/16/2025 2:06 PM EDT Gina CRAIN LAB BLOOD ORDERABLES Final Resu lt [facility] [address] [place] [address], [place] [phone] * HIV 1,2 antibody, p24 antigen with reflex to differentiation (03/16/2025 2:06 PM EDT) HIV Combo AB/AG Negative Negative LAB CHEMISTRY METHOD 03/16/2025 7:41 PM EDT [facility] Blood Venous blood specimen / Unknown Venipuncture / Unknown 03/16/2025 2:06 PM EDT 03/16/2025 2:06 PM EDT Narrative [facility] - 03/16/2025 7:41 PM EDT This assay is a 4th generation assay allowing for earlier detection of HIV infection by detecting the presence of the HIV-1 p24 antigen as well as the traditional antibodies to HIV type 1 (including group O) and type 2. Use of a 4th generation assay is the current CDC recommendation for HIV screening. us Gina CRAIN LAB BLOOD ORDERABLES Final Resu lt [facility] [address] [place] [address], [place] [phone] * (ABNORMAL) Lipid panel with reflex to direct LDL (03/16/2025 2:06 PM EDT) Cholesterol 145 0 - 200 mg/dL LAB CHEMISTRY METHOD 03/16/2025 6:15 PM EDT [facility] Triglycerides 176(H) 0 - 150 mg/dL LAB CHEMISTRY METHOD 03/16/2025 6:15 PM EDT [facility] HDL 48 >=40 mg/dL LAB CHEMISTRY METHOD 03/16/2025 6:15 PM EDT [facility] LDL Calculated 62 0 - 100 mg/dL LAB CHEMISTRY METHOD 03/16/2025 6:15 PM T [facility] VLDL Cholesterol Garry 35.2 mg/dL LAB CHEMISTRY METHOD 03/16/2025 6:15 PM EDT [facility] Non HDL Chol. (LDL+VLDL) 97 <145 mg/dL LAB CHEMISTRY METHOD 03/16/2025 6:15 PM EDT [facility] Chol/HDL Ratio 3.0 0.0 - 4.4 LAB CHEMISTRY METHOD 03/16/2025 6:15 PM [facility] Blood Venous blood specimen / Unknown Venipuncture / Unknown 03/16/2025 2:06 PM EDT 03/16/2025 2:06 PM EDT us Paulina CRAIN LAB BLOOD ORDERABLES Final Resul t Performing Organization Address [facility]/ZIP Co de Phone Number [facility] [address] [place] [address], [place] [phone] * Microalbumin creatinine urine ratio (03/16/2025 2:06 PM EDT) Creatinine, Urine 126.0 mg/dL LAB CHEMISTRY METHOD 03/16/2025 6:50 PM EDT [facility] Microalb, Ur 9.6 0.0 - 29.0 mg/L LAB CHEMISTRY METHOD 03/16/2025 6:50 PM EDT [facility] Microalb/Creat Ratio 8 <30 mg/g creat LAB CHEMISTRY METHOD 03/16/2025 6:50 PM EDT [facility] Urine Urine specimen obtained by clean catch procedure / Unknown Non-blood Collection / Unknown 03/16/2025 2:06 PM EDT 03/16/2025 2:06 PM EDT us Paulina CRAIN LAB URINE ORDERABLES Final Resul t Performing Organization Address City/[facility]/ZIP Co de Phone Number [facility] [address] [place] [address], [place] [phone] * Hemoglobin A1c (03/16/2025 2:06 PM EDT) Hemoglobin A1C 5.0 <6.5 % LAB CHEMISTRY METHOD 03/16/2025 9:35 PM EDT [facility] Mean Bld Glu Estim. 97 mg/dL LAB CHEMISTRY METHOD 03/16/2025 9:35 PM EDT [facility] Blood Venous blood specimen / Unknown Venipuncture / Unknown 03/16/2025 2:06 PM EDT 03/16/2025 2:06 PM EDT us Paulina CRAIN LAB BLOOD ORDERABLES Final Resul t [facility] [address] [place] [address], [place] [phone] * (ABNORMAL) Comprehensive metabolic panel (03/16/2025 2:06 PM EDT) Sodium 142 133 - 145 mmol/L LAB CHEMISTRY METHOD 03/16/2025 6:15 PM T [facility] Potassium 3.9 3.5 - 5.5 mmol/L LAB CHEMISTRY METHOD 03/16/2025 6:15 PM [facility] Chloride 107 96 - 110 mmol/L LAB CHEMISTRY METHOD 03/16/2025 6:15 PM [facility] CO2 28 21 - 32 mmol/L LAB CHEMISTRY METHOD 03/16/2025 6:15 PM [facility] Anion Gap 7 3 - 11 LAB CHEMISTRY METHOD 03/16/2025 6:15 PM [facility] Glucose 68(L) 70 - 100 mg/dL LAB CHEMISTRY METHOD 03/16/2025 6:15 PM [facility] BUN 15 5 - 25 mg/dL LAB CHEMISTRY METHOD 03/16/2025 6:15 PM [facility] Creatinine 0.64 0.50 - 1.10 mg/dL LAB CHEMISTRY METHOD 03/16/2025 6:15 PM [facility] eGFR 105 >=60 mL/min/1. 73m2 LAB CHEMISTRY METHOD 03/16/2025 6:15 PM [facility] Comment:Calculation based on the Chronic Kidney Disease Epidemiology Collaboration (CKD-EPI) equation refit without adjustment for race. BUN/Creatinine Ratio 23.4 LAB CHEMISTRY METHOD 03/16/2025 6:15 PM [facility] Calcium 9.2 8.5 - 10.5 mg/dL LAB CHEMISTRY METHOD 03/16/2025 6:15 PM EDT [facility] AST (SGOT) 18 10 - 42 unit/L LAB CHEMISTRY METHOD 03/16/2025 6:15 PM EDT [facility] ALT (SGPT) 21 10 - 60 unit/L LAB CHEMISTRY METHOD 03/16/2025 6:15 PM EDT [facility] Alkaline Phosphatase 75 42 - 121 unit/L LAB CHEMISTRY METHOD 03/16/2025 6:15 PM EDT [facility] Total Protein 7.0 6.0 - 8.0 g/dL LAB CHEMISTRY METHOD 03/16/2025 6:15 PM EDT [facility] Albumin 3.7 3.2 - 5.0 g/dL LAB CHEMISTRY METHOD 03/16/2025 6:15 PM EDT [facility] Total Bilirubin 0.3 0.0 - 1.4 mg/dL LAB CHEMISTRY METHOD 03/16/2025 6:15 PM EDT [facility] Blood Venous blood specimen / Unknown Venipuncture / Unknown 03/16/2025 2:06 PM EDT 03/16/2025 2:06 PM EDT us Paulina CRAIN LAB BLOOD ORDERABLES Final Resul t [facility] [address] [place] [address], from Last 3 Months or Most Recently Relevant to Health Maintenance Insurance [facility] [employer] Care Teams Quality Improvement Manager Relationship Specialty Start Date End Date Valery Tejeda MD [address] [place] [phone] PCP - General Internal Medicine 06/10/22
== END 2025-08-31 13:59 | disposition home or self-care (01) ==
LOC: HO.US 13:58
PROVIDERS: Visit Provider Advanced Practice Midwife
DX: R19.00 Intra-abdominal and pelvic swelling, mass and lump, unspecified site (principal)
CPT/HCPCS: 76830; 76856

== ENCOUNTER 2025-09-15 11:23 | Outpatient (AMB) | payer OTHER, SELFPAY ==
[2025-09-15 11:48] VITALS: BP 118/66
--- NOTE | 2025-09-15 11:48 | A.OFFVIS_ITS ---
Vital Signs 09/15/25 11:48 Height 5 ft 1 in BP 118/66 Blood Pressure Location Rt brachial Position Sitting Intake Visit Reasons: ultrasound results Intake Note: no complaints offered Drop Clipper: Drop Clipper Present Allergies No Known Allergies Allergy (Unverified 09/15/25 11:54) Medication List - Last Reconciled 09/15/25 by Mona Ruelas LPN alprazolam (Xanax) 1 mg PO BID levothyroxine 125 mcg PO DAILY metformin 500 mg PO BID Is last menstrual period known: No Post menopausal: Yes HPI Comments Details: Patient is here today for a follow up pelvic ultrasound and HRT consult. History of pelvic fullness throughout her pelvis with her last exam. She rates reports a history of constipation. Menopausal 2 years ago reports hot flashes, anxiety, mood swings, sleep issues. Recent cholesterol level via her patient portal veiw was 145. She denies any contraindications to hormone use: migraines with aura, history of DVT or pulmonary emboli, high blood pressure, liver disease, thrombolic disorders, Lupus, +LYNNETTE, breast cancer, or smoking. [facility] Medical History Fibroid Hot flash, menopausal Pelvic fullness Anxiety Hypothyroidism Prediabetes Surgical History Cholecystotomy with removal of foreign body from gallbladder performed Family History Paternal Aunt Breast cancer Maternal Grandmother Liver cancer Social History Household Members: Children Household Members Other:: Housing: House Are you a primary rn coronary care unit to a significant other at home: Yes Do you presently have visiting nurse or other home services: No 75 years or older and lives alone: No Alcohol intake: never Patient Tobacco Use Status: Never used Tobacco service: No Current occupational status: previously employed Current occupational exposures/hazards: No Cognitive needs: No Hearing needs: No Vision needs: No Female Reproductive History Menstrual Age of Menarche: 12 Date of last pap smear: 06/09/25 History of abnormal pap smear: No Date of Mammogram: 09/16/25 Review of Systems Const All systems reviewed & are unremarkable except as noted in HPI and below Endo Reports no additional complaints Physical Exam Vital Signs: Last Vital Signs BP 118/66 09/15/25 11:48 Const General: cooperative, healthy appearing and no acute distress Psych Appearance: well kempt Attitude: cooperative Thought process: Normal thought process present Results Reviewed Results Reviewed: [address] [address] Ultrasound Report Signed Patient: Mahsa Antoine MR#: [id number] : 1970 Acct:[id number] Age/Sex: 55 / F ADM Date: 08/31/25 Loc: HO.US Attending Dr: Meli Joyner CNM Ordering Physician: Meli Joyner CNM Date of Service: 08/31/25 Procedure(s): US pelvic and transvaginal Accession Number(s): [id number] cc: Meli Joyner CNM~ Reason for Exam: R19.00 - Intra-abdominal and pelvic swelling, mass and lump, unspecified... EXAMINATION: US PELVIS, COMPLETE CLINICAL INFORMATION: Intra-abdominal and pelvic swelling. COMPARISON: None available TECHNIQUE: Transabdominal and transvaginal imaging was performed. FINDINGS: Very limited due to bowel gas and bowel loops. LMP: Postmenopausal Uterus is anteverted , measuring 7.2 x 3.3 x 4.9 cm. There are 2 heterogeneous hypoechoic foci in the myometrium, measuring 1.3 x 1 x 1.2 cm and measuring 0.9 x 0.4 x 0.7 cm. These may reflect fibroids. Endometrial thickness 7 mm. Right ovary measures 1.3 x 1 x 1.2 cm. Volume 3.4 mL. Left ovary measures 2.1 x 1.5 x 1.2 cm. Volume 2 mL. No free fluid in the cul-de-sac. 0.9 x 0.7 x 1.1 cm cystic area along the base of the left side of the bladder, could represent ureterocele. US/US pelvic and transvaginal IMPRESSION: Very limited study due to bowel gas and bowel loops. * Postmenopausal patient. Endometrial thickness measuring 7 mm. In postmenopausal patients, endometrial thickness of 8 mm or less is within range of normal, if no vaginal bleeding. Clinical correlation and management is recommended based on patient's symptoms and risk factors. In a postmenopausal patient, endometrial thickness of 4 mm or more in the presence of vaginal bleeding would require further evaluation. Clinical management is recommended. This probably reflects fibroids * 2 heterogeneous hypoechoic foci in the uterine myometrium measuring up to 1.3 cm and 0.9 cm respectively. These may reflect fibroids. Further evaluation with MRI as clinically indicated. * Cystic focus in the left bladder base measuring up to 1.1 cm, could represent a ureterocele. Electronically signed by: Alonso Ren MD 08/31/2025 03:36 PM EDT RP Dictated By: Alonso Ren MD Signed By: <Electronically signed by Alonso Ren MD in OV> 08/31/25 1536 DD/ 1429 TD/TT: 08/31/25 1439 Char Conveyor Tender Cellar: JESUSITA Assessment & Plan Assessment & Plan (1) Pelvic fullness: Code(s): R19.00 - Intra-abdominal and pelvic swelling, mass and lump, unspecified site Category: Medical Plan: Discussed: Ultrasound findings-see report. (2) Fibroid: Code(s): D21.9 - Benign neoplasm of connective and other soft tissue, unspecified Category: Medical Plan: Counseled re: Leiomyoma: common pelvic neoplasm. Differential diagnosis-may include but not limited to- leiomyosarcoma which is a rare uterine sarcoma 3- 7/100,000, difficult to distinguish from fibroids on ultrasound from uterine sarcoma's. Unlikely any single test will have a highly positive predictive value. Hysterectomy is not recommended for sole purpose of excluding malignant neoplasm. Consult for surgical exploration, medical treatment, other treatments, verses expectant management, pros and cons, risks and benefits. Expectant management follow up in 6 months, then yearly for stability. Patient prefers to proceed with expectant management. Referral to MD if indicated for level of care if indicated Report any PMB, pelvic pressure, bloating, or pain. The patient expressed understanding and agreement with the plan of care. All of her questions and concerns were addressed to the best of my ability. (3) Hot flash, menopausal: Code(s): N95.1 - Menopausal and female climacteric states Category: Medical Plan: Lifestyle changes and self-help measures for hot flash and comfort. (4) Counseling for hormone replacement therapy: Code(s): Z71.89 - Other specified counseling Plan: Counseled regarding HRT, risks benefits, association with cancer growth if positive for hormone receptors, importance of yearly mammograms, clinical exam and self-breast awareness. Hormone use warnings: go to ER if and loss of vision, blindness, severe headache, chest pain or difficulty breathing, severe abdominal pain, or any pain or swelling in an extremity. The patient expressed understanding and agreement with the plan of care. All of her questions and concerns were addressed to the best of my ability. Mammogram scheduled for tomorrow, await results for review prior to prescribing hormone therapy. Follow up in 4-6 weeks med check (5) Abnormal finding on ultrasound: Code(s): R93.89 - Abnormal findings on diagnostic imaging of other specified body structures Plan Discussed ultrasound findings in regards to-0.9 x 0.7 x 1.1 cm cystic area along the base of the left side of the bladder, could represent ureterocele. Due to symptoms of bladder changes advised she could have a consult with the urology to discuss her concerns, referral will be placed. The patient expressed understanding and agreement with the plan of care. All of her questions and concerns were addressed to the best of my ability. Orders: Orders US pelvic and transvaginal 6 Months D21.9 - Benign neoplasm of connective and other soft tissue, unspecified Referrals Urology Referral R93.89 - Abnormal findings on diagnostic imaging of other specified body structures Coding Level of Care Code Est Pt Level 3 (94243) Diagnoses Pelvic fullness R19.00 Fibroid D21.9 Hot flash, menopausal N95.1 Counseling for hormone replacement therapy Z71.89 Abnormal finding on ultrasound R93.89
== END 2025-09-15 12:34 | disposition home or self-care (01) ==
LOC: HO.HWS 11:24
PROVIDERS: Visit Provider Advanced Practice Midwife
DX: R19.00 Intra-abdominal and pelvic swelling, mass and lump, unspecified site (principal); D21.9 Benign neoplasm of connective and other soft tissue, unspecified; N95.1 Menopausal and female climacteric states; Z71.89 Other specified counseling; R93.89 Abnormal findings on diagnostic imaging of other specified body structures
CPT/HCPCS: 99213

== ENCOUNTER → 2025-09-15 11:23 | Outpatient (BNVA) | payer OTHER, SELFPAY | PROVIDERS: Visit Provider Advanced Practice Midwife | DX: N95.1 Menopausal and female climacteric states (principal); R19.00 Intra-abdominal and pelvic swelling, mass and lump, unspecified site; D21.9 Benign neoplasm of connective and other soft tissue, unspecified; R93.89 Abnormal findings on diagnostic imaging of other specified body structures; Z71.89 Other specified counseling | CPT/HCPCS: 99212 ==

== ENCOUNTER 2025-09-16 09:40 | Outpatient (REF) | payer OTHER, SELFPAY ==
--- OUTSIDE RECORDS SUMMARY | 2025-09-15 07:30 | XMS_ITS | Encounter Summary ---
Author Organization [facility] Address [address] [place] [address] Care Team Providers Care Sanding Line Operator Name Role Phone Valery Tejeda MD Primary Care Prov ider Reason for Visit * Reason Comments Diabetes Mellitus F/u diabetes Encounter Details Date Type Department Care Team (Late st Contact Info) Description 09/15/2025 7:30 AM EST Office Visit Endocrinology - [place] [address] [place], [place] [phone] Paulina Rush PA [address] [place], [place] Type 2 diabetes mellitus with other diabetic kidney complication (CMS/HCC V24, CMS/HCC V28) (Primary Dx); Hypothyroidism, unspecified type; Microalbuminuria; Hand tingling Social History Tobacco Use Types Packs/Day Years Used Date Smoking Tobacco: Some Days Smokeless Tobacco: Never Housing Instability Answer Date Recorde d Are [...] care for your loved ones. For example, child monitor or elderly care for an older adult? [...] Orientation Straight 01/29/2025 7: 29 PM EDT documented as of this encounter Last Filed Vital Signs Vital Sign Reading Time Taken Comments Blood Pressure 95/63 09/15/2025 7:32 AM EST Pulse 70 09/15/2025 7:32 AM EST Temperature - - Respiratory Rate 12 09/15/2025 7:32 AM EST Oxygen Saturation - - Inhaled Oxygen Concentration - - Weight 60.3 kg (133 lb) 09/15/2025 7:32 AM EST Height 157.5 cm (5' 2 ) 09/15/2025 7:32 AM EST Body Mass Index 24.33 09/15/2025 7:32 AM EST documented in this encounter Ordered Prescriptions Prescription Sig Dispense Quantity Refills Last Filled Start Date End Date metFORMIN XR (GLUCOPHAGE-XR) 500 mg 24 hr tabletIndications:T ype 2 diabetes mellitus with other diabetic kidney complication ([facility] V24, [facility] V28) Take 1 tablet (500 mg total) by mouth 2 (two) times a day with meals. 180 tablet 1 09/15/2025 documented in this encounter Progress Notes * BREANN Espinoza - 09/15/2025 7:30 AM EST CHIEF COMPLAINT: Diabetes Mellitus (F/u diabetes) IDENTIFIER: Mahsa Anotine is a 55 y.o. old female HPI: Patient is a 55-year-old female presents today for evaluation of diabetes. Also with hypothyroidism. Current diabetic regimen: Metformin 500 mg twice daily Jardiance 25 mg, half a talbet once daily Current glucose reading at 98 Usuaslly in the 90s in AM, fasting No complaints of polyuria, polydipsia, nausea vomiting abdominal pain. Due for eye exam She is very active, exercising daily. BMI improved to 24.33 Diagnosed with hypothyroidism more than 10 years ago, has family history of hypothyroidism. On levothyroxine 125 mcg once daily. Lab Results Component Value Date TSH 0.46 03/16/2025 Lab Results Component Value Date HGBA1C 5.0 03/16/2025 ROS: GENERAL: No malaise HEENT: No changes in hearing or vision RESPIRATORY: No cough, wheezing or shortness of breath CARDIOVASCULAR: No chest pain, leg swelling or palpitations GI: No abdominal discomfort ENDO: see HPI NEURO: No persistent headache, syncope PAST MEDICAL HISTORY: Patient Active Problem List Diagnosis Date Noted Microalbuminuria 06/27/2022 DM (diabetes mellitus), type 2 with renal complications ([facility] V24, [facility] V28) 08/24/2021 Hypothyroidism 12/23/2019 Depression 12/23/2019 Anxiety 12/23/2019 Past Surgical History: Procedure Laterality Date OTHER SURGICAL HISTORY PROCEDURE: DENIES PREVIOUS SURGERY SOCIAL HISTORY: Social History Tobacco Use Smoking status: Some Days Smokeless tobacco: Never Substance Use Topics Alcohol use: Not on file FAMILY HISTORY: No family history on file. No family status information on file. MEDICATIONS DISCONTINUED/REORDERED: Medications Discontinued During This Encounter Medication Reason metFORMIN XR (GLUCOPHAGE-XR) 500 mg 24 hr tablet Reorder empagliflozin (Jardiance) 25 mg tablet Reorder ACTIVE MEDICATIONS: Outpatient Medications Marked as Taking for the 09/15/25 encounter (Office Visit) with BREANN Espinoza Medication Sig Dispense Refill ALPRAZolam (XANAX) 1 mg tablet Take 1 mg by mouth 2 times daily as needed. blood sugar diagnostic (FreeStyle Lite Strips) test strip [id number] ONCE DAILY blood-glucose meter kit Use to check blood sugars 1 each 0 cloNIDine (CATAPRES) 0.1 mg tablet Take 0.1 mg by mouth 2 times daily. empagliflozin (Jardiance) 25 mg tablet Take half a tablet by mouth daily. freestyle 28 gauge lancets 1 Units by Does not apply route daily. levothyroxine (SYNTHROID, LEVOTHROID) 125 mcg tablet Take 1 tablet (125 mcg total) by mouth 1 (one)time each day. 90 tablet 1 metFORMIN XR (GLUCOPHAGE-XR) 500 mg 24 hr tablet Take 1 tablet (500 mg total) by mouth 2 (two) times a day with meals. 180 tablet 1 [DISCONTINUED] empagliflozin (Jardiance) 25 mg tablet Take 25 mg by mouth daily. 90 tablet 2 [DISCONTINUED] metFORMIN XR (GLUCOPHAGE-XR) 500 mg 24 hr tablet Take 1 tablet (500 mg total) by mouth 2 (two) times a day with meals. 180 tablet 1 ALLERGIES: Patient has no known allergies. PHYSICAL EXAM: Blood pressure 95/63, pulse 70, resp. rate 12, height 1.575 m (62 ), weight 60.3 kg (133 lb). Body mass index is 24.33 kg/m??. Plan is deferred until next visit APPEARANCE: Alert and in no acute distress NEURO: Awake, alert LABS: Lab Results Component Value Date HGBA1C 5.0 03/16/2025 HGBA1C 6.8 (A) 03/12/2024 Lab Results Component Value Date MICROALBUR 9.6 03/16/2025 LDLCALC 62 03/16/2025 CREATININE 0.64 03/16/2025 MICROALBCREA 8 03/16/2025 Lab Results Component Value Date GLUCOSE 68 (L) 03/16/2025 IMAGING: IMPRESSION: 1. Type 2 diabetes mellitus with other diabetic kidney complication ([facility] V24, [facility] V28) 2. Hypothyroidism, unspecified type 3. Microalbuminuria 4. Hand tingling PLAN: Diabetes: A1c 5.0% previously. Continue with metformin and Jardiance. Will stop Jardiance if A1c continues to be low Schedule eye exam. Check renal function Hypothyroidism, underlying Kevin's: Check TSH. Continue with levothyroxine as prescribed. Occasional tingling in hands: Check B12, followed PCP if symptoms persist or worsen. Patient will graduate from [facility] as DM and thyroid are stable. Follow up with PCP Medication and lab orders: Orders Placed This Encounter Procedures Hemoglobin A1c Thyroid stimulating hormone with reflex to free t4 and free t3 Vitamin B12 None BREANN Tran on 09/15/2025 at 8:42 AM EST documented in this encounter Plan of Treatment Scheduled Orders Name Type Priority Associated Diagnoses Orde r Schedule Hemoglobin A1c Lab Routine Type 2 diabetes mellitus with other diabetic kidney complication ([facility] V24, [facility] V28) Expected: 03/15/2026, Expires: 09/15/2026 documented as of this encounter Results * (ABNORMAL) Vitamin B12 (09/15/2025 8:12 AM EST) Vitamin B-12 >2,000(H) 250 - 900 pcg/mL LAB CHEMISTRY METHOD 09/15/2025 11:[address] [facility] Blood Venous blood specimen / Unknown Venipuncture / Unknown 09/15/2025 8:12 AM EST 09/15/2025 8:12 AM EST us Paulina CRAIN LAB BLOOD ORDERABLES Final Resul t [facility] [address] [place] [address], [place] [phone] * (ABNORMAL) Thyroid stimulating hormone with reflex to free t4 and free t3 (09/15/2025 8:12 AM EST) TSH 0.32(L) 0.40 - 4.00 mcIU/mL LAB CHEMISTRY METHOD 09/15/2025 11:[address] [facility] Blood Venous blood specimen / Unknown Venipuncture / Unknown 09/15/2025 8:12 AM EST 09/15/2025 8:12 AM EST us Paulina CRAIN LAB BLOOD ORDERABLES Final Resul t [facility] [address] [place] [address], documented in this encounter Visit Diagnoses Diagnosis Type 2 diabetes mellitus with other diabetic kidney complication ([facility] V24, [facility] V28)- Primary Hypothyroidism, unspecified type Microalbuminuria Proteinuria Hand tingling documented in this encounter Discontinued Medications Medication Sig Discontinue Reason Start Date End Da te metFORMIN XR (GLUCOPHAGE-XR) 500 mg 24 hr tabletIndications:Type 2 diabetes mellitus with other diabetic kidney complication ([facility] V24, [facility] V28) Take 1 tablet (500 mg total) by mouth 2 (two) times a day with meals. Reorder 01/27/2025 09/15/2025 empagliflozin (Jardiance) 25 mg tablet Take 25 mg by mouth daily. Reorder 01/27/2025 09/15/2025 documented as of this encounter Historical Medications * This list may reflect changes made after this encounter. empagliflozin (Jardiance) 25 mg tablet Take half a tablet by mouth daily. 09/15/2025 added in this encounter Additional Health Concerns Assessment Noted Time PHQ-9 Depression Total Score: 0 03/16/20 25 1:14 PM EDT documented as of this encounter Care Teams Sanding Line Operator Relationship Specialty Start Date End Date Valery Tejeda MD [address] [place] [phone] PCP - General Internal Medicine 06/10/22 documented as of this encounter
--- OUTSIDE RECORDS SUMMARY | 2025-09-15 08:05 | XMS_ITS | Encounter Summary ---
Author Organization [facility] Address [address] [place] [address] Care Team Providers Care Pollution Control Technician Name Role Phone Valery Tejeda MD Primary Care Prov ider Encounter Details Date Type Department Care Team (Late st Contact Info) Description 09/15/2025 8:05 AM EST Lab Draw Station - [address] [phone] Hand tingling; Hypothyroidism, unspecified type; Screen for STD (sexually transmitted disease); Type 2 diabetes mellitus with other diabetic kidney complication, without long-term current use of insulin (CMS/HCC V24, CMS/HCC V28); Dysuria Social History Tobacco Use Types Packs/Day Years [...] care for your loved ones. For example, special needs child caregiver or elderly care for an older adult? [...] PM EDT documented as of this encounter Plan of Treatment Not on file documented as of this encounter Procedures Procedure Name Priority Date/Time Associated Diagnosis Comments THYROID STIMULATING HORMONE WITH REFLEX TO FREE T4 AND FREE T3 Routine 09/15/2025 8:12 AM EST Hypothyroidism, unspecified type FREE THYROXINE WITH REFLEX TO FREE TRIIODOTHYRONINE Routine 09/15/2025 8:12 AM EST Hypothyroidism, unspecified type TRIIODOTHYRONINE FREE Routine 09/15/2025 8:12 AM EST Hypothyroidism, unspecified type HEMOGLOBIN A1C Routine 09/15/2025 8:12 AM EST Screen for STD (sexually transmitted disease) Type 2 diabetes mellitus with other diabetic kidney complication, without long-term current use of insulin ([facility] V24, [facility] V28) Hypothyroidism, unspecified type Dysuria VITAMIN B12 Routine 09/15/2025 8:12 AM EST Hand tingling BASIC METABOLIC PANEL Routine 09/15/2025 8:12 AM EST Screen for STD (sexually transmitted disease) Type 2 diabetes mellitus with other diabetic kidney complication, without long-term current use of insulin ([facility] V24, [facility] V28) Hypothyroidism, unspecified type Dysuria documented in this encounter Results * Triiodothyronine free (09/15/2025 8:12 AM EST) T3, Free 306 230 - 420 pcg/dL LAB CHEMISTRY METHOD 09/15/2025 3:26 PM EST [facility] Blood Venous blood specimen / Unknown Venipuncture / Unknown 09/15/2025 8:12 AM EST 09/15/2025 8:12 AM EST us Paulina CRAIN LAB BLOOD ORDERABLES Final Resul t [facility] [address] [place] [address], [place] [phone] * Free thyroxine with reflex to free triiodothyronine (09/15/2025 8:12 AM EST) Free T4 1.69 0.70 - 1.80 ng/dL LAB CHEMISTRY METHOD 09/15/2025 1:49 PM EST [facility] Blood Venous blood specimen / Unknown Venipuncture / Unknown 09/15/2025 8:12 AM EST 09/15/2025 8:12 AM EST us Paulina CRAIN LAB BLOOD ORDERABLES Final Resul t Performing Organization Address [facility]/ZIP Co de Phone Number [facility] [address] [place] [address], [place] [phone] * Hemoglobin A1c (09/15/2025 8:12 AM EST) Pathologist [facility] Hemoglobin A1C 5.1 <6.5 % LAB CHEMISTRY METHOD 09/15/2025 10:30 PM EST [facility] Mean Bld Glu Estim. 100 mg/dL LAB CHEMISTRY METHOD 09/15/2025 10:30 PM EST [facility] Blood Venous blood specimen / Unknown Venipuncture / Unknown 09/15/2025 8:12 AM EST 09/15/2025 8:12 AM EST Paulina CRAIN LAB BLOOD ORDERABLES Final Resul t Performing Organization Address [facility]/ZIP Co de Phone Number [facility] [address] [place] [address], [place] [phone] * Basic metabolic panel (09/15/2025 8:12 AM EST) [facility] Sodium 141 133 - 145 mmol/L LAB CHEMISTRY METHOD 09/15/2025 11:00 AM [facility] Potassium 3.8 3.5 - 5.5 mmol/L LAB CHEMISTRY METHOD 09/15/2025 11:00 AM [facility] Chloride 107 96 - 110 mmol/L LAB CHEMISTRY METHOD 09/15/2025 11:00 AM [facility] CO2 30 21 - 32 mmol/L LAB CHEMISTRY METHOD 09/15/2025 11:00 AM [facility] Anion Gap 4 3 - 11 LAB CHEMISTRY METHOD 09/15/2025 11:00 AM [facility] Glucose 80 70 - 100 mg/dL LAB CHEMISTRY METHOD 09/15/2025 11:00 AM [facility] BUN 20 5 - 25 mg/dL LAB CHEMISTRY METHOD 09/15/2025 11:00 AM [facility] Creatinine 0.70 0.50 - 1.10 mg/dL LAB CHEMISTRY METHOD 09/15/2025 11:00 AM [facility] eGFR 102 >=60 mL/min/1. 73m2 LAB CHEMISTRY METHOD 09/15/2025 11:00 AM [facility] Comment:Calculation based on the Chronic Kidney Disease Epidemiology Collaboration (CKD-EPI) equation refit without adjustment for race. BUN/Creatinine Ratio 28.6 LAB CHEMISTRY METHOD 09/15/2025 11:00 AM [facility] Calcium 9.5 8.5 - 10.5 mg/dL LAB CHEMISTRY METHOD 09/15/2025 11:00 AM [facility] Blood Venous blood specimen / Unknown Venipuncture / Unknown 09/15/2025 8:12 AM EST 09/15/2025 8:12 AM EST us Paulina CRAIN LAB BLOOD ORDERABLES Final Resul t [facility] [address] [place] [address], [place] [phone] * (ABNORMAL) Thyroid stimulating hormone with reflex to free t4 and free t3 (09/15/2025 8:12 AM EST) TSH 0.32(L) 0.40 - 4.00 mcIU/mL LAB CHEMISTRY METHOD 09/15/2025 11:56 AM [facility] Blood Venous blood specimen / Unknown Venipuncture / Unknown 09/15/2025 8:12 AM EST 09/15/2025 8:12 AM EST us Paulina CRAIN LAB BLOOD ORDERABLES Final Resul t [facility] [address] [place] [address], [place] [phone] * (ABNORMAL) Vitamin B12 (09/15/2025 8:12 AM EST) Vitamin B-12 >2,000(H) 250 - 900 pcg/mL LAB CHEMISTRY METHOD 09/15/2025 11:28 AM EST [facility] Blood Venous blood specimen / Unknown Venipuncture / Unknown 09/15/2025 8:12 AM EST 09/15/2025 8:12 AM EST us Paulina CRAIN LAB BLOOD ORDERABLES Final Resul t [facility] [address] [place] [address], documented in this encounter Visit Diagnoses Diagnosis Hand tingling Hypothyroidism, unspecified type Screen for STD (sexually transmitted disease) Screening examination for venereal disease Type 2 diabetes mellitus with other diabetic kidney complication, without long- term current use of insulin ([facility] V24, [facility] V28) Dysuria documented in this encounter Additional Health Concerns Assessment Noted Time PHQ-9 Depression Total Score: 0 03/16/20 25 1:14 PM EDT documented as of this encounter Care Teams Pollution Control Technician Relationship Specialty Start Date End Date Valery Tejeda MD [address] [place] [phone] PCP - General Internal Medicine 06/10/22 documented as of this encounter
--- NOTE | ~2025-09-16 | MM_ITS ---
EXAMINATION: MM SCREENING DIGITAL BREAST TOMOSYNTHESIS, BILATERAL CLINICAL INFORMATION: Screening. Asymptomatic. COMPARISON: Mammography: Baseline. TECHNIQUE: Digital breast mammography with tomosynthesis is performed in both the craniocaudal and mediolateral oblique views along with computer-aided detection (CAD). FINDINGS: There are scattered areas of fibroglandular density. There are no significant masses, abnormal calcifications, or other abnormalities. MM/MM tomosynthesis screening BI IMPRESSION: No mammographic evidence of malignancy. ASSESSMENT: BI-RADS Category 1: Negative RECOMMENDATION: Routine annual mammography screening. 1 year F/U This examination should not preclude the clinical evaluation of a suspicious palpable abnormality. This patient's information was entered into a reminder system with a target due date for their next mammogram. Electronically signed by: Radha Mora DO 09/20/2025 10:24 AM JT
--- OUTSIDE RECORDS SUMMARY | 2025-09-16 11:02 | XMS_ITS | Clinical Summary ---
Author Organization [facility] [address] [place] [address] Address [address], [place] Phone Care Team Providers Care Iuss Acoustic Analyst Name Role Phone Valery Tejeda MD Primary Care Prov ider Allergies No known active allergies Medications ALPRAZolam (XANAX) 1 mg tablet Take 1 mg by mouth 2 times daily as needed. Active cloNIDine (CATAPRES) 0.1 mg tablet Take 0.1 mg by mouth 2 times daily. Active blood sugar diagnostic (FreeStyle Lite Strips) test strip E11.49USE ONCE DAILY 03/19/20 24 Active freestyle 28 gauge lancets 1 Units by Does not apply route daily. 03/19/20 24 Active blood-glucose meter kit Use to check blood sugars 1 each 01/28/20 25 Active levothyroxine (SYNTHROID, LEVOTHROID) 125 mcg tabletIndication s:Hypothyroidism , unspecified Take 1 tablet (125 mcg total) by mouth 1 (one) time each day. 90 tablet 1 01/28/20 25 Active polyethylene glycol (Golytely) 236-22.74-6.74 -5.86 gram solution Take 4L by mouth once for one dose. May substitue any PEG. Starting at 6PM the night before your procedure drink 1 8oz glasses at your own pace until you complete half of the gallon. Finish 2nd half of the gallon 5 hours before your procedure. 4000 mL 05/11/20 25 Active bisacodyL (DULCOLAX) 5 mg EC tablet Take 2 tablets by mouth right before beginning bowel prep. See instructions provided by the office 2 tablet 05/11/20 25 Active metFORMIN XR (GLUCOPHAGE-XR) 500 mg 24 hr tabletIndication s:Type 2 diabetes mellitus with other diabetic kidney complication ([facility] V24, CMS/[facility] V28) Take 1 tablet (500 mg total) by mouth 2 (two) times a day with meals. 180 tablet 1 09/15/20 25 Active empagliflozin (Jardiance) 25 mg tablet Take half a tablet by mouth daily. 09/15/20 25 Active empagliflozin (Jardiance) 25 mg tablet Take 25 mg by mouth daily. 90 tablet 2 01/28/20 25 025 Discontin ued(Reord er) metFORMIN XR (GLUCOPHAGE-XR) 500 mg 24 hr tabletIndication s:Type 2 diabetes mellitus with other diabetic kidney complication (CMS/[facility] V24, CMS/[facility] V28) Take 1 tablet (500 mg total) by mouth 2 (two) times a day with meals. 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 Depression 12/23/2019 Overview (08/12/2024): Psychiatrist-giving medication. Seeing once a month. Anxiety 12/23/2019 Encounters Date Type Department Care Team Description 09/15/2025 8:05 AM EST Lab Draw Station - [address] Hand tingling; Hypothyroidism, unspecified type; Screen for STD (sexually transmitted disease); Type 2 diabetes mellitus with other diabetic kidney complication, without long-term current use of insulin ([facility] V24, [facility] V28); Dysuria 09/15/2025 7:30 AM EST Office Visit Endocrinology - [address] [phone] Paulina Rush PA Type 2 diabetes mellitus with other diabetic kidney complication ([facility] V24, [facility] V28) (Primary Dx); Hypothyroidism, unspecified type; Microalbuminuria; Hand tingling from Last 3 Months Immunizations Immunization Administration Dates Next Due Influenza Quadravalent, MDCK , 0.5ml, preservative free (Flucelvax) 6mo and older 09/02/2017 Influenza trivalent, with pr eservative (Fluzone; Afluria) 6mo and older 08/27/2016 Surgical History Surgery Date Site/Laterality Comments OTHER SURGICAL HISTORY PROCEDURE: DENIES PREVIOUS SURGERY Medical History Medical History Date Comments Obesity DX:Obesity DM (diabetes mellitus), type 2 with renal complications ([facility] V24, [facility] V28) 08/24/2021 DX:DM (diabetes mellitus), t ype 2 with renal complications ([facility]) Microalbuminuria 06/27/2022 DX:Microalbumin uria Social History Tobacco [...] for your loved ones. For example, child welfare caseworker or elderly care for an older adult? [...] Pulse 70 09/15/2025 7:32 AM EST Temperature 36.2 C (97.2 F) 03/16/2025 1:16 PM EDT Respiratory Rate 12 09/15/2025 7:32 AM EST Oxygen Saturation 98% 03/16/2025 1:16 PM EDT Inhaled Oxygen Concentration - - Weight 60.3 kg (133 lb) 09/15/2025 7:32 AM EST Height 157.5 cm (5' 2 ) 09/15/2025 7:32 AM EST Body Mass Index 24.33 09/15/2025 7:32 AM EST Plan of Treatment Health Maintenance Due Date Last Done Comments [...] 2019 Zoster Vaccines (1 of 2) 2019 Diabetes: Blood Sugar Control Test (HGBA1C) 09/16/2025 09/15/2025, 03/16/2025, 03/12/2024, Additional history exists Diabetes: Annual Urine Albumin-Creatinine Ratio (uACR) 03/16/2026 03/16/2025, 06/26/2022 Diabetes: Annual Foot Exam 03/16/2026 03/16/2025 Social Influencers of Health Screening 03/16/2026 03/16/2025 Diabetes: Annual GFR (Glomerular Filtration Rate) 09/15/2026 09/15/2025, 03/16/2025, 03/12/2024, Additional history exists Cholesterol Screening (Lipid Panel) 03/16/2030 03/16/2025, 04/01/2023 Depression Screening Completed 03/16/2025 HIV Screening Completed 03/16/2025 Hepatitis C Screening Completed 03/16/2025 COVID-19 Vaccine Discontinued 06/21/2025, 12/2020, 08/21/2021 Influenza Vaccine Completed 06/21/2025, , 08/27/2016 HIB Vaccines Aged Out No longer eligi [...] Procedure Name Priority Date/Time Associated Diagnosis Comments TRIIODOTHYRONINE FREE Routine 09/15/2025 8:12 AM EST Hypothyroidism, unspecified type FREE THYROXINE WITH REFLEX TO FREE TRIIODOTHYRONINE Routine 09/15/2025 8:12 AM EST Hypothyroidism, unspecified type HEMOGLOBIN A1C Routine 09/15/2025 8:12 AM EST Screen for STD (sexually transmitted disease) Type 2 diabetes mellitus with other diabetic kidney complication, without long-term current use of insulin ([facility] V24, [facility] V28) Hypothyroidism, unspecified type Dysuria BASIC METABOLIC PANEL Routine 09/15/2025 8:12 AM EST Screen for STD (sexually transmitted disease) Type 2 diabetes mellitus with other diabetic kidney complication, without long-term current use of insulin ([facility] V24, [facility] V28) Hypothyroidism, unspecified type Dysuria THYROID STIMULATING HORMONE WITH REFLEX TO FREE T4 AND FREE T3 Routine 09/15/2025 8:12 AM EST Hypothyroidism, unspecified type VITAMIN B12 Routine 09/15/2025 8:12 AM EST Hand tingling HEPATITIS C ANTIBODY Routine 03/16/2025 2:06 PM EDT Screen for STD (sexually transmitted disease) HIV 1, 2 ANTIBODY, P24 ANTIGEN WITH REFLEX TO DIFFERENTIATION Routine 03/16/2025 2:06 PM EDT Screen for STD (sexually transmitted disease) MICROALBUMIN CREATININE URINE RATIO Routine 03/16/2025 2:06 PM EDT Type 2 diabetes mellitus with other diabetic kidney complication, without long-term current use of insulin ([facility] V24, [facility] V28) LIPID PANEL WITH REFLEX TO DIRECT LDL Routine 03/16/2025 2:06 PM EDT Type 2 diabetes mellitus with other diabetic kidney complication, without long-term current use of insulin ([facility] V24, [facility] V28) from Last 3 Months or Most Recently Relevant to Health Maintenance Results * (ABNORMAL) Thyroid stimulating hormone with reflex to free t4 and free t3 (09/15/2025 8:12 AM EST) TSH 0.32(L) 0.40 - 4.00 mcIU/mL LAB CHEMISTRY METHOD 09/15/2025 11:56 AM EST [facility] Blood Venous blood specimen / Unknown Venipuncture / Unknown 09/15/2025 8:12 AM EST 09/15/2025 8:12 AM EST Paulina CRAIN LAB BLOOD ORDERABLES Final Resul t Performing Organization Address City/[facility]/ZIP Co de Phone Number [facility] [address] [place] [address], * Free thyroxine with reflex to free triiodothyronine (09/15/2025 8:12 AM EST) Free T4 1.69 0.70 - 1.80 ng/dL LAB CHEMISTRY METHOD 09/15/2025 1:49 PM EST [facility] Blood Venous blood specimen / Unknown Venipuncture / Unknown 09/15/2025 8:12 AM EST 09/15/2025 8:12 AM EST us Paulina CRAIN LAB BLOOD ORDERABLES Final Resul t [facility] [address] [place] [address], [place] [phone] * Triiodothyronine free (09/15/2025 8:12 AM EST) T3, Free 306 230 - 420 pcg/dL LAB CHEMISTRY METHOD 09/15/2025 3:26 PM EST [facility] Blood Venous blood specimen / Unknown Venipuncture / Unknown 09/15/2025 8:12 AM EST 09/15/2025 8:12 AM EST us Paulina CRAIN LAB BLOOD ORDERABLES Final Resul t Performing Organization Address City/[facility]/ZIP Co de Phone Number [facility] [address] [place] [address], [place] [phone] * Hemoglobin A1c (09/15/2025 8:12 AM EST) Hemoglobin A1C 5.1 <6.5 % LAB CHEMISTRY METHOD 09/15/2025 10:30 PM EST [facility] Mean Bld Glu Estim. 100 mg/dL LAB CHEMISTRY METHOD 09/15/2025 10:30 PM EST [facility] Blood Venous blood specimen / Unknown Venipuncture / Unknown 09/15/2025 8:12 AM EST 09/15/2025 8:12 AM EST us Paulina CRAIN LAB BLOOD ORDERABLES Final Resul t Performing Organization Address [facility]/ZIP Co de Phone Number [facility] [address] [place] [address], [place] [phone] * (ABNORMAL) Vitamin B12 (09/15/2025 8:12 AM EST) Vitamin B-12 >2,000(H) 250 - 900 pcg/mL LAB CHEMISTRY METHOD 09/15/2025 11:28 AM EST [facility] Blood Venous blood specimen / Unknown Venipuncture / Unknown 09/15/2025 8:12 AM EST 09/15/2025 8:12 AM EST us Paulina CRAIN LAB BLOOD ORDERABLES Final Resul t Performing Organization Address City/[facility]/ZIP Co de Phone Number [facility] [address] [place] [address], [place] [phone] * Basic metabolic panel (09/15/2025 8:12 AM EST) Sodium 141 133 - 145 mmol/L LAB CHEMISTRY METHOD 09/15/2025 11:00 AM [facility] Potassium 3.8 3.5 - 5.5 mmol/L LAB CHEMISTRY METHOD 09/15/2025 11:00 AM [facility] Chloride 107 96 - 110 mmol/L LAB CHEMISTRY METHOD 09/15/2025 11:00 AM [facility] CO2 30 21 - 32 mmol/L LAB CHEMISTRY METHOD 09/15/2025 11:00 AM [facility] Anion Gap 4 3 - 11 LAB CHEMISTRY METHOD 09/15/2025 11:00 AM [facility] Glucose 80 70 - 100 mg/dL LAB CHEMISTRY METHOD 09/15/2025 11:00 AM [facility] BUN 20 5 - 25 mg/dL LAB CHEMISTRY METHOD 09/15/2025 11:00 AM [facility] Creatinine 0.70 0.50 - 1.10 mg/dL LAB CHEMISTRY METHOD 09/15/2025 11:00 AM [facility] eGFR 102 >=60 mL/min/1. 73m2 LAB CHEMISTRY METHOD 09/15/2025 11:00 AM [facility] Comment:Calculation based on the Chronic Kidney Disease Epidemiology Collaboration (CKD-EPI) equation refit without adjustment for race. BUN/Creatinine Ratio 28.6 LAB CHEMISTRY METHOD 09/15/2025 11:00 AM [facility] Calcium 9.5 8.5 - 10.5 mg/dL LAB CHEMISTRY METHOD 09/15/2025 11:00 AM [facility] Blood Venous blood specimen / Unknown Venipuncture / Unknown 09/15/2025 8:12 AM EST 09/15/2025 8:12 AM EST us Paulina CRAIN LAB BLOOD ORDERABLES Final Resul t Performing Organization Address [facility]/ZIP Co de Phone Number [facility] [address] [place] [address], [place] [phone] * Hepatitis C antibody (03/16/2025 2:06 PM EDT) Hepatitis C Antibody Negative Negative LAB CHEMISTRY METHOD 03/16/2025 7:40 PM EDT [facility] Blood Venous blood specimen / Unknown Venipuncture / Unknown 03/16/2025 2:06 PM EDT 03/16/2025 2:06 PM EDT us Gina CRAIN LAB BLOOD ORDERABLES Final Resu lt Performing Organization Address [facility] Co de Phone Number [facility] [address] [place] [address], [place] [phone] * HIV 1,2 antibody, p24 antigen with reflex to differentiation (03/16/2025 2:06 PM EDT) Pathologist [facility] HIV Combo AB/AG Negative Negative LAB CHEMISTRY [...] ORDERABLES Final Resu lt Performing Organization Address [facility]/ZIP Co de Phone Number [facility] [address] [place] [address], [place] [phone] * (ABNORMAL) Lipid panel with reflex to [...] PM EDT [facility] VLDL Cholesterol [...] t [facility] [address] [place] [address], [place] [phone] * Microalbumin creatinine urine ratio (03/16/2025 2:06 PM EDT) Creatinine, Urine 126.0 mg/dL LAB CHEMISTRY METHOD 03/16/2025 6:50 PM EDT [facility] Microalb, Ur 9.6 0.0 - 29.0 mg/L LAB CHEMISTRY METHOD 03/16/2025 6:50 PM EDT [facility] Microalb/Creat Ratio 8 <30 mg/g creat LAB CHEMISTRY METHOD 03/16/2025 6:50 PM EDT [facility] Urine Urine specimen obtained by clean catch procedure / Unknown Non-blood Collection / Unknown 03/16/2025 2:06 PM EDT 03/16/2025 2:06 PM EDT us Paulina CRAIN LAB URINE ORDERABLES Final Resul t [facility] [address] [place] [address], from Last 3 Months or Most Recently Relevant to Health Maintenance Insurance [facility] [place] [address] Care Teams Iuss Acoustic Analyst Relationship Specialty Start Date End Date Valery Tejeda MD [address] [place] [address] PCP - General Internal Medicine 06/10/22
== END 2025-09-16 09:41 | disposition home or self-care (01) ==
LOC: HO.MAMMO 09:40
PROVIDERS: Visit Provider Advanced Practice Midwife
DX: Z12.31 Encounter for screening mammogram for malignant neoplasm of breast (principal)
CPT/HCPCS: 77063; 77067

== ENCOUNTER → 2025-09-16 10:00 | Outpatient (BNV) | payer OTHER, SELFPAY | PROVIDERS: Visit Provider Internal Medicine | DX: Z12.31 Encounter for screening mammogram for malignant neoplasm of breast (principal) | CPT/HCPCS: 77063; 77067 ==